=== PATIENT | male | born 1960 | race African-American/Black ===

== ENCOUNTER 2017-02-22 09:51 | Emergency (ER) | payer BC ==
[~2017-02-22] VITALS: Ht 167.6 cm; Wt 104.3 kg
[2017-02-22] MEDS ORDERED: METFORMIN PO (10:02)
[2017-02-22] MEDS ORDERED: B/P MED PO (10:02)
--- NOTE | 2017-02-22 10:12 | NUR ---
Patient is resting comfortably on gurney while using his personal electronic device, NAD
[2017-02-22] MEDS ORDERED: IV NORMAL SALINE 1000 ML BAG IV ONE (10:30)
[2017-02-22 10:49] LABS: BASOPHILS # (AUTO) 0.1 K/uL (0.0-8.0); BASOPHILS % (AUTO) 2.5 % (0.0-2.0); EOSINOPHILS # (AUTO) 0.1 K/uL (0.0-0.7); EOSINOPHILS % (AUTO) 1.7 % (0.0-7.0); HEMATOCRIT 42.7 % (36.7-47.1); HEMOGLOBIN 14.2 g/dL (12.5-16.3); LYMPHOCYTES # (AUTO) 1.5 K/uL (20.0-40.0); LYMPHOCYTES % (AUTO) 33.3 % (20.5-51.5); MEAN CORPUSCULAR HEMOGLOBIN 27.7 uug (23.8-33.4); MEAN CORPUSCULAR HGB CONC 33 g/dL (32.5-36.3); MEAN CORPUSCULAR VOLUME 83.5 fL (73.0-96.2); MONOCYTES # (AUTO) 0.4 K/uL (2.0-10.0); MONOCYTES % (AUTO) 8.3 % (0.0-11.0); NEUTROPHILS # (AUTO) 2.4 K/uL (1.8-8.9); NEUTROPHILS % (AUTO) 54.2 % (38.5-71.5); PLATELET COUNT (AUTO) 221 K/uL (152-348); RED BLOOD CELL COUNT(AUTO) 5.12 MIL/uL (4.06-5.63); WHITE BLOOD COUNT (AUTO) 4.4 K/uL (3.6-10.2)
[2017-02-22 10:49] LABS: *BILIRUBIN,URIN 1+ (NEGATIVE); *BLOOD, URINE NEGATIVE (NEGATIVE); *CLARITY,URINE CLEAR (CLEAR); *COLOR,URINE YELLOW (YELLOW); *KETONES,URINE NEGATIVE (NEGATIVE); *PROTEIN,URINE 2+ (NEGATIVE); *UROBILINOGEN,URINE 0.2 E.U./dl (NORMAL); LEUKOCYTE ESTERASE ,URINE NEGATIVE (NEGATIVE); NITRITE, URINE NEGATIVE (NEGATIVE); PH,URINE 5.5 (5.0-8.0); UGLUCOSE NEGATIVE (NEGATIVE)
[2017-02-22 10:55] LABS: CREATININE 1.3 mg/dL (0.6-1.3); POTASSIUM 3.9 mmol/L (3.5-5.1)
[2017-02-22 11:01] LABS: BILIRUBIN,DIRECT 0.1 mg/dL (0.0-0.2); BILIRUBIN,TOTAL 0.4 mg/dL (0.2-1.0); TOTAL PROTEIN, SERUM 7.2 g/dL (6.4-8.2)
[2017-02-22 11:05] LABS: RBC,URINE 0-3 /HPF (0-3)
[2017-02-22 11:06] LABS: BACTERIA,URINE NONE SEEN /HPF (NONE SEEN); MUCUS,URINE MODERATE /LPF (0-FEW); SQUAMOUS EPITHELIAL CELL,UR FEW /HPF (NONE SEEN)
--- NOTE | 2017-02-22 12:12 | NUR ---
Patient ambulated to bathroom with steady gait, NAD, pending disposition
[2017-02-22] MEDS ORDERED: INSULIN REGULAR, HUMAN 1,000 UNITS/10 ML VIAL SUBCUT ONE (12:45)
--- NOTE | 2017-02-22 12:51 | NUR ---
IV [email or web address]. Catheter intact and site benign. Pressure and 4x4 gauze applied to site. No bleeding noted, pending discharge [email or web address] time.
[2017-02-22] MEDS ORDERED: INSULIN REGULAR, HUMAN 300 UNIT/3 ML VIAL ONE (13:00)
--- NOTE | 2017-02-22 14:01 | NUR ---
Patient discharged to home in stable conditon. Written and verbal after care instructions given to patient. Patient verbalizes understanding of instructions.
== END 2017-02-22 14:03 | disposition home or self-care (01) ==
LOC: ER 09:51
DX: E11.43 Type 2 diabetes mellitus with diabetic autonomic (poly)neuropathy (principal); K31.84 Gastroparesis; I10 Essential (primary) hypertension; Z79.4 Long term (current) use of insulin; E78.5 Hyperlipidemia, unspecified
CPT/HCPCS: 36415; 71010; 74176; 80048; 80076; 81001; 82962; 83690; 84484; 85025; 93005; 96372; 99285; A4663; J1815; J7030; 70030-TC